=== PATIENT | male | born 1970 | race Caucasian/White ===

== ENCOUNTER 2023-06-09 09:01 | Emergency (ER) | payer BC ==
[~2023-06-09 09:01] MED LIST: IBUP-30 PO
[2023-06-09 09:20] VITALS: BP_SYST 118; BP_SYST 136; BP_SYST 146; BP_DIAS 76; BP_DIAS 82; BP_DIAS 87
[2023-06-09 09:55] LABS: BASOPHILS % (AUTO) 1 % (0-10); EOSINOPHILS % (AUTO) 0 % (0-10); HEMATOCRIT 45 % (40-54); LYMPHOCYTES # (AUTO) 1.2 10^3/uL (1.0-4.0); LYMPHOCYTES % (AUTO) 14 % (12-44); MEAN CORPUSCULAR HEMOGLOBIN 29 pg (25-34); MEAN CORPUSCULAR HGB CONC 33 g/dL (32-36); MEAN CORPUSCULAR VOLUME 89 fL (80-99); MEAN PLATELET VOLUME 9.8 fL (9.0-12.2); MONOCYTES # (AUTO) 0.7 10^3/uL (0.0-1.0); MONOCYTES % (AUTO) 8 % (0-12); NEUTROPHILS # (AUTO) 6.3 10^3/uL (1.8-7.8); NEUTROPHILS % (AUTO) 77 % (42-75); PLATELET COUNT 251 10^3/uL (130-400); WHITE BLOOD COUNT 8.2 10^3/uL (4.3-11.0)
[2023-06-09 10:05] LABS: ALBUMIN 4.4 GM/DL (3.2-4.5); BILIRUBIN,TOTAL 0.7 MG/DL (0.1-1.0); CALCIUM 9.5 MG/DL (8.5-10.1); CREATININE SERUM 1.16 MG/DL (0.60-1.30); MAGNESIUM 2.2 MG/DL (1.6-2.4); POTASSIUM 4.3 MMOL/L (3.6-5.0); TOTAL PROTEIN 7.9 GM/DL (6.4-8.2)
[2023-06-09 10:23] LABS: BACTERIA,URINE NEGATIVE /HPF; BILIRUBIN,URINE NEGATIVE (NEGATIVE); CLARITY,URINE CLEAR; COLOR,URINE YELLOW; GLUCOSE, URINE (UA) NEGATIVE (NEGATIVE); KETONES,URINE 1+ (NEGATIVE); LEUKOCYTE ESTERASE ,URINE NEGATIVE (NEGATIVE); NITRITE,URINE NEGATIVE (NEGATIVE); PH,URINE 5.5 (5-9); PROTEIN,URINE NEGATIVE (NEGATIVE); RBC,URINE RARE /HPF; WBC,URINE RARE /HPF
--- NOTE | 2023-06-09 13:50 | ED General ---
General Chief Complaint: General Problems/Pain Stated Complaint: DIZZINESS | NO APPETITE | HYPOGLYCEMIC Nursing Triage Note: PT AMB TO TRIAGE PT STATES DIZZINES, WEAKNESS, STATES HAS BEEN HAVING DIZZINESS, NAUSEA, DIARRHEA, HEART PALPATATIONS AND SOME STOMACH DISCOMFORT Source of Information: Patient Exam Limitations: No Limitations History of Present Illness Date Seen by Provider: Jun 09, 2023 Allergies and Home Medications Allergies Coded Allergies: No Known Drug Allergies (Unverified , 03/22/12) Patient Home Medication List Ibuprofen (Advil) 200 Mg Tablet, 200 MG PO NEEDED, (Reported) Entered as Reported by: GERMAN OLIVO on 03/22/12 0816 Ondansetron (Ondansetron Odt) 4 Mg Tab.rapdis, 4 MG SL Q4H PRN for NAUSEA/VOMITING Prescribed by: POLINA PALOMARES on 06/09/23 1400 Past Fznjqav-Uybtpa-Dlkywn Hx Patient Social History Tobacco Use?: No Substance use?: No Alcohol Use?: No Pt feels they are or have been: No Past Medical History Surgery/Hospitalization HX: HIATAL HERNIA, BILAT KNEE ARTHROSCOPY, T AND A Reproductive Disorders: No Physical Exam Vital Signs Vital Signs - First Documented 06/09/23 09:10 Temp 36.7 Pulse 82 Resp 18 B/P (MAP) 128/77 (94) Pulse Ox 98 Capillary Refill : Less Than 3 Seconds Height, Weight, BMI Height: '" Weight: lbs. oz. kg; BMI Method: Progress/Results/Core Measures Suspected Sepsis SIRS Temperature: Pulse: 87 Respiratory Rate: 18 Laboratory Tests 06/09/23 09:30: White Blood Count 8.2 Blood Pressure 118 /82 Mean: 94 Laboratory Tests 06/09/23 09:30: Creatinine 1.16, Platelet Count 251, Total Bilirubin 0.7 Results/Orders Lab Results Laboratory Tests Test 06/09/23 09:13 06/09/23 09:30 06/09/23 10:02 Range/Units Glucometer 95 70-110 MG/DL White Blood Count 8.2 4.3-11.0 10^3/uL Red Blood Count 5.10 4.30-5.52 10^6/uL Hemoglobin 15.0 13.3-17.7 g/dL Hematocrit 45 40-54 % Mean Corpuscular Volume 89 80-99 fL Mean Corpuscular Hemoglobin 29 25-34 pg Mean Corpuscular Hemoglobin Concent 33 32-36 g/dL Red Cell Distribution Width 12.7 10.0-14.5 % Platelet Count 251 130-400 10^3/uL Mean Platelet Volume 9.8 9.0-12.2 fL Immature Granulocyte % (Auto) 0 % Neutrophils (%) (Auto) 77 H 42-75 % Lymphocytes (%) (Auto) 14 12-44 % Monocytes (%) (Auto) 8 0-12 % Eosinophils (%) (Auto) 0 0-10 % Basophils (%) (Auto) 1 0-10 % Neutrophils # (Auto) 6.3 1.8-7.8 10^3/uL Lymphocytes # (Auto) 1.2 1.0-4.0 10^3/uL Monocytes # (Auto) 0.7 0.0-1.0 10^3/uL Eosinophils # (Auto) 0.0 0.0-0.3 10^3/uL Basophils # (Auto) 0.0 0.0-0.1 10^3/uL Immature Granulocyte # (Auto) 0.0 0.0-0.1 10^3/uL Sodium Level 138 135-145 MMOL/L Potassium Level 4.3 3.6-5.0 MMOL/L Chloride Level 104 98-107 MMOL/L Carbon Dioxide Level 26 21-32 MMOL/L Anion Gap 8 5-14 MMOL/L Blood Urea Nitrogen 14 7-18 MG/DL Creatinine 1.16 0.60-1.30 MG/DL Estimat Glomerular Filtration Rate 74 BUN/Creatinine Ratio 12 Glucose Level 103 70-105 MG/DL Calcium Level 9.5 8.5-10.1 MG/DL Corrected Calcium 9.2 8.5-10.1 MG/DL Magnesium Level 2.2 1.6-2.4 MG/DL Total Bilirubin 0.7 0.1-1.0 MG/DL Aspartate Amino Transf (AST/SGOT) 28 5-34 U/L Alanine Aminotransferase (ALT/SGPT) 20 0-55 U/L Alkaline Phosphatase 67 40-136 U/L Total Protein 7.9 6.4-8.2 GM/DL Albumin 4.4 3.2-4.5 GM/DL Urine Color YELLOW Urine Clarity CLEAR Urine pH 5.5 5-9 Urine Specific [place] 1.015 L 1.016-1.022 Urine Protein NEGATIVE NEGATIVE Urine Glucose (UA) NEGATIVE NEGATIVE Urine Ketones 1+ H NEGATIVE Urine Nitrite NEGATIVE NEGATIVE Urine Bilirubin NEGATIVE NEGATIVE Urine Urobilinogen 0.2 < = 1.0 MG/DL Urine Leukocyte Esterase NEGATIVE NEGATIVE Urine RBC (Auto) NEGATIVE NEGATIVE Urine RBC RARE /HPF Urine WBC RARE /HPF Urine Crystals NONE /LPF Urine Bacteria NEGATIVE /HPF Urine Casts NONE /LPF Urine Mucus NEGATIVE /LPF Urine Culture Indicated NO My Orders Orders - POLINA GYU MD Cbc And Automated Diff (06/09/23 09:46) Comprehensive Metabolic Panel (06/09/23 09:46) Magnesium (06/09/23 09:46) Ua Culture If Indicated (06/09/23 09:46) Ed Iv/Invasive Line Start (06/09/23 09:46) Helicobacter Pylori Elsie Igg (06/09/23 11:59) Acetaminophen Suppository (Acetaminophen (06/09/23 14:00) Ekg Tracing (06/09/23 09:28) Vital Signs/I&O 06/09/23 06/09/23 06/09/23 09:10 09:20 14:01 Temp 36.7 Pulse 82 78 73 87 87 Resp 18 B/P (MAP) 128/77 (94) 136/76 (96) 143/86 146/87 (106) 118/82 (94) Pulse Ox 98 Capillary Refill : Less Than 3 Seconds Blood Pressure Mean: 94 ECG Initial ECG Impression Date: Jun 09, 2023 Initial ECG Impression Time: 09:28 Initial ECG Rate: 74 Initial ECG Rhythm: Normal Sinus Initial ECG Impression: Normal Comment Sinus rhythm with no ST elevation or depression. Chronic left bundle branch block is relatively unchanged from prior. No other abnormal intervals or axis deviation. Departure Impression Primary Impression: Nausea Additional Impressions: Dizziness Chronic left bundle branch block Disposition: 01 HOME, SELF-CARE Condition: Stable Departure-Patient Inst. Decision time for Depature: 13:46 Referrals: VALARIE ANTONIO DO (PCP/Family) Primary Care Physician Patient Instructions: Nausea and Vomiting, Adult, Dizziness, Adult ED Add. Discharge Instructions: The exact cause of your symptoms is uncertain based on your workup today. Continue to take the antacid medication Protonix (pantoprazole) daily until you complete the entire 30-day prescription. Use the Zofran (ondansetron) as prescribed for nausea or vomiting. An H. pylori test was ordered for further evaluation in the emergency room. This test may take several days to result. Please review results with Dr. Antonio at a later date. You may take Tylenol (acetaminophen) up to 1000 mg every 6 hours as needed for discomfort. Avoid use of NSAID medications such as ibuprofen or naproxen as they may worsen stomach symptoms. Avoid the following: Eating large meals, eating close to bedtime, caffeine, carbonation, chocolate, citrus fruits and juices, tomato products, mints, alcohol, tobacco, NSAID medications such as ibuprofen or naproxen, spicy foods, fatty/greasy foods, and anything else you know irritate your stomach. Consuming these things may worsen stomach symptoms. Follow-up with Dr. Antonio at one of your designated times this week. Discussed the potential for further evaluation of your abdominal symptoms and dizziness. Given your history of a left bundle branch block, a referral to a machine farmworker and outpatient cardiac monitoring may be warranted at Dr. Antonio's discretion. Return to the emergency room if you have worsening symptoms despite following these instructions. All discharge instructions reviewed with patient and/or family. Voiced understanding. Scripts Ondansetron (Ondansetron Odt) 4 Mg Tab.rapdis 4 MG SL Q4H PRN for NAUSEA/VOMITING, #10 TAB Prov: POLINA GUY MD 06/09/23 Copy Copies To 1: VALARIE ANTONIO JOSHUA T MD Jun 09, 2023 13:50
[2023-06-09] MEDS ORDERED: ACETAMINOPHEN 650 MG SUPPOSITORY PR ONE (14:00)
[2023-06-09] MEDS ORDERED: ONDA4TAB11 SL (14:00)
[2023-06-09 14:01] VITALS: BP 143/86
== END 2023-06-09 14:05 | disposition home or self-care (01) ==
LOC: EDUNIT# 09:01 → ER 09:06
DX: I44.7 Left bundle-branch block, unspecified (principal); R11.0 Nausea
CPT/HCPCS: 36415; 80053; 81000; 82947; 83735; 85025; 86677; 93005